=== PATIENT | female | born 1960 | race Caucasian/White ===

== ENCOUNTER 2021-09-05 00:38 | Day surgery (SDC) | payer OTHER, SELFPAY ==
[2021-08-21 15:23] VITALS: BMI 23.4
--- NOTE | 2021-09-04 13:55 | WPDANESEPPF ---
Anes - Initial Pre Proc Eval Procedure: Operation Date: 09/05/21 07:30 Proposed Procedures p Screening Colonoscopy - Shantanu Guy MD Date/Time: 09/04/21 13:55 Surgeon: Shantanu Guy MD Pre Op Diagnosis: neoplasm screening Patient Data Age: 61 Gender: F Height: 1.7 m Weight: 68 kg Allergies Allergy/AdvReac Type Severity Reaction Status Date / Time No Known Allergies Allergy Verified 09/05/21 06:31 Home Medications Medication Instructions Recorded Confirmed Type anastrozole 1 mg tablet 1 mg PO DAILY 10/31/19 09/05/21 History biotin 10,000 mcg capsule 10,000 mcg PO .QD cap 10/31/19 09/05/21 History zoledronic acid 5 mg/100 mL in 5 mg IVPB ONCE 04/16/20 09/05/21 History mannitol 5 %-water intravenous piggybck vitamin B complex 1 tablet PO DAILY 10/18/20 09/05/21 History atorvastatin 10 mg tablet 5 mg PO DAILY #90 tablet 04/15/21 09/05/21 Rx metoprolol succinate 50 mg 50 mg PO BID #180 tablet 07/10/21 09/05/21 Rx tablet,extended release 24 hr Elderberry 2 tbsp PO DAILY 08/21/21 09/05/21 History calcium 600 mg PO 3XW 08/21/21 09/05/21 History cholecalciferol (vitamin D3) 50 mcg PO DAILY 08/21/21 09/05/21 History [Vitamin D3] ergocalciferol (vitamin D2) 1,250 mcg PO WEEKLY 08/21/21 09/05/21 History lisinopril 20 mg PO DAILY 08/21/21 09/05/21 History omega-3 fatty acids-fish oil 1 cap PO 3XW 08/21/21 09/05/21 History [[place] 3 Fish Oil] zinc gluconate 50 mg PO DAILY 08/21/21 09/05/21 History Patient hx anesthesia problems: none Family hx anesthesia problems: none Results Review: All pre-operative results and documents have been reviewed as part of the pre-operative evaluation. [facility] Past Medical History Medical History (Updated 09/04/21 @ 13:56 by Glenn Reed DO) Ductal carcinoma in situ (DCIS) of breast (~2013) Essential (primary) hypertension History of blood transfusion (~1999) Hyperlipidemia PONV (postoperative nausea and vomiting) Surgical History Surgical History H/O breast reconstruction (~2013) H/O laparoscopy (~1976) H/O mastectomy (~1999) bilateral H/O: hysterectomy (~2000) Total Family History Family History Mother Diabetes mellitus Hypertension Family history of malignant neoplasm of breast in first degree relative Father Family history of lung cancer Grandparent Diabetes mellitus Hypertension Family history of Parkinson's disease Family history of emphysema Sibling Family history of mental disorder Hypertension Family history of alcoholism Family history of chronic obstructive pulmonary disease Family history of malignant neoplasm of breast in first degree relative Social History Social History Smoking status: Never smoker Alcohol intake: current Drinks per week: 2 Alcohol use details: WINE/BEER Substance use: never Substance use type: does not use Living arrangements: with family Spiritual care concerns: No Anes - Eval Final PreProcedure Day of Procedure 09/04/21 13:55 Patient weight: normal Heart: regular rate and rhythm Lungs: clear to auscultation and normal air movement Airway: Mallampati scale class II Neurological: alert and oriented Last oral intake: >/= 8 hours ASA classification: II Emergent: no Anesthetic plan: proceed Anesthesia type and monitoring: general GIVS and standard monitoring Results Review: All pre-operative results and documents have been reviewed as part of the pre-operative evaluation. Informed Consent: The patient's anesthetic plan and its attendant risks and benefits were discussed with the patient/family/POA. Questions were solicited and answers provided to the satisfaction of the patient/family/POA.
[2021-09-05 06:32] VITALS: BP 150/92; PULSE 88; RESP 16; TEMP 35.9; O2SAT 98
[2021-09-05] MEDS: LACTATED RINGERS 1,000 ML 150 ML IV CONT (06:43)
--- NOTE | 2021-09-05 07:17 | WPDGICN ---
Assessment and Plan Assessment and plan (1) Encounter for screening colonoscopy: Code(s): Z12.11 - Encounter for screening for malignant neoplasm of colon Status: Acute Assessment and Plan: Patient presents for screening colonoscopy. Appears to be at average risk for colon polyps. GI Consult Note Consult date/time: 09/05/21 07:17 HPI: Melba Monzon is a 61 year old female Presents for screening colonoscopy. Patient's current weight appetite bowel movements are normal. She denies abdominal pain. She has had no bleeding. Family history is noncontributory. Review of Systems Review of Systems: All systems reviewed & are unremarkable except as noted in HPI and below PMFSH Past Medical History Medical History (Updated 09/05/21 @ 07:18 by Shantanu Guy MD) Ductal carcinoma in situ (DCIS) of breast (~2013) Essential (primary) hypertension History of blood transfusion (~1999) Hyperlipidemia PONV (postoperative nausea and vomiting) Surgical History Surgical History H/O breast reconstruction (~2013) H/O laparoscopy (~1976) H/O mastectomy (~1999) bilateral H/O: hysterectomy (~2000) Total Family History Family History Mother Diabetes mellitus Hypertension Family history of malignant neoplasm of breast in first degree relative Father Family history of lung cancer Grandparent Diabetes mellitus Hypertension Family history of Parkinson's disease Family history of emphysema Sibling Family history of mental disorder Hypertension Family history of alcoholism Family history of chronic obstructive pulmonary disease Family history of malignant neoplasm of breast in first degree relative Social History Social History Smoking status: Never smoker Alcohol intake: current Drinks per week: 2 Alcohol use details: WINE/BEER Substance use: never Substance use type: does not use Living arrangements: with family Spiritual care concerns: No Meds Home Medications and Allergies Home Medications Medication Instructions Recorded Confirmed Type anastrozole 1 mg tablet 1 mg PO DAILY 10/31/19 09/05/21 History biotin 10,000 mcg capsule 10,000 mcg PO .QD cap 10/31/19 09/05/21 History zoledronic acid 5 mg/100 mL in 5 mg IVPB ONCE 04/16/20 09/05/21 History mannitol 5 %-water intravenous piggybck vitamin B complex 1 tablet PO DAILY 10/18/20 09/05/21 History atorvastatin 10 mg tablet 5 mg PO DAILY #90 tablet 04/15/21 09/05/21 Rx metoprolol succinate 50 mg 50 mg PO BID #180 tablet 07/10/21 09/05/21 Rx tablet,extended release 24 hr Elderberry 2 tbsp PO DAILY 08/21/21 09/05/21 History calcium 600 mg PO 3XW 08/21/21 09/05/21 History cholecalciferol (vitamin D3) 50 mcg PO DAILY 08/21/21 09/05/21 History [Vitamin D3] ergocalciferol (vitamin D2) 1,250 mcg PO WEEKLY 08/21/21 09/05/21 History lisinopril 20 mg PO DAILY 08/21/21 09/05/21 History omega-3 fatty acids-fish oil 1 cap PO 3XW 08/21/21 09/05/21 History [[place] 3 Fish Oil] zinc gluconate 50 mg PO DAILY 08/21/21 09/05/21 History Allergies Allergy/AdvReac Type Severity Reaction Status Date / Time No Known Allergies Allergy Verified 09/05/21 06:31 Vital Signs Vital Signs - 24 hr 09/05/21 06:32 Temperature 96.6 F L Pulse Rate 88 Respiratory Rate 16 Blood Pressure 150/92 H Pulse Oximetry 98 Exam Narrative: Physical exam reveals patient be alert. Vital signs stable. HEENT exam is unremarkable. Patient is anicteric. Lungs are clear to auscultation and percussion. Heart is without murmur or extra sounds. Abdominal exam bowel sounds are present soft nontender with no organomegaly. Digital external rectal exam is normal.
[2021-09-05 07:49] VITALS: BP 99/57; PULSE 76; RESP 22; O2SAT 96
[2021-09-05 07:59] VITALS: BP 129/77; PULSE 76; RESP 20; O2SAT 98
--- NOTE | 2021-09-05 08:01 | SUR.PHASEII ---
RN updated Gayatri, patient's family member, on patient's status in recovery and when to come pick her up
[2021-09-05 08:09] VITALS: BP 139/90; PULSE 72; RESP 14; O2SAT 100
== END 2021-09-05 08:20 | disposition home or self-care (01) ==
PROVIDERS: PCP Family Medicine; Visit Provider Internal Medicine Gastroenterology
PROC: 0DJD8ZZ Inspection of Lower Intestinal Tract, Via Natural or Artificial Opening Endoscopic (ICD-10-PCS; CPT 45378; principal; 2021-09-05 07:30)
DX: Z12.11 Encounter for screening for malignant neoplasm of colon (principal); K64.8 Other hemorrhoids; Z85.3 Personal history of malignant neoplasm of breast; I10 Essential (primary) hypertension; E78.5 Hyperlipidemia, unspecified
CPT/HCPCS: 45378; J0330; J2405; J2704; J7120

== ENCOUNTER 2022-12-13 10:32 | Emergency (ER) | payer OTHER, SELFPAY ==
--- NOTE | ~2022-12-13 | CT_ITS ---
EXAMINATION: CT facial & cervical spine wo DATE: 12/13/2022 11:42 INDICATION: Fall. Swelling between eyebrows lesions. TECHNIQUE: Computed tomography (CT) of the facial bones and maxillofacial region was performed withou t intravenous contrast. Automated exposure control and iterative reconstruction technique were employ ed. Exam dose: 243.58 mGy-cm total exam DLP. COMPARISON: None. FINDINGS: Left frontal cephalohematoma with hematoma extending into the region of the nasion and medi al periorbital areas. The nasal bones and anterior maxillary spine are intact. The orbital rims and dick are intact. No or bital blowout fracture is evident. The frontozygomatic sutures are intact. No fracture of the zygomatic arches. The maxillary bones are intact. Normal alignment at the temporomandibular joints. No mandibular fracture is detected. The mastoid air cells are normally developed and aerated. The paranasal sinuses are normally aerated. C1 and C2 are normally aligned and the odontoid process is intact. No fracture or dislocation or lock ed facet. There is fusion at the apophyseal joints on the right at C5-6 and mild bilateral C5-6 uncovertebral j oint spurring. There is mild degenerative disc disease and minimal anterolisthesis at C5-6. There is degenerative change at the apophyseal joints throughout the cervical spine, particularly on the right and on the left at C7-T1. There is minimal anterolisthesis at C7-T1. IMPRESSION: Left frontal cephalohematoma, extending into the nasion and medial periorbital areas No facial fracture Mild cervical spondylosis; no cervical spine fracture or dislocation or locked facet Reviewed, dictated and finalized at [facility]. Reviewed, dictated and finalized at [facility].
--- NOTE | ~2022-12-13 | CT_ITS ---
EXAMINATION: CT brain wo con DATE: 12/13/2022 11:42 INDICATION: Fall. Head injury. TECHNIQUE: Computed tomography (CT) of the head was performed without intravenous contrast. The mA wa s adjusted according to patient size. Iterative reconstruction technique was employed. Exam dose: 60 5.33 mGy-cm total exam DLP. COMPARISON: None FINDINGS: Bilateral vertebral artery and prominent bilateral carotid siphon internal carotid artery c alcifications. No intracranial mass lesion or hemorrhage or cerebrovascular accident is detected. No midline shift o r mass effect. Normal ventricular size. No subdural or epidural hematoma. Left parasagittal frontal for hematoma, extending to the nasion and left periorbital area. No underly ing skull fracture or contrecoup intracranial injury is noted. The included nasal bones are intact. No fracture or bone destruction of the cranial vault. Included paranasal sinuses and the mastoid air cells are normally developed and aerated. IMPRESSION: Left frontal cephalohematoma, extending into the region of the nasion and left periorbit al area No skull fracture or acute intracranial finding. Cerebral atherosclerosis Reviewed, dictated and finalized at [facility]. Reviewed, dictated and finalized at [facility]. IMPRESSION: Left frontal cephalohematoma, extending into the region of the stiven ion and left periorbital area No skull fracture or acute intracranial finding. Cerebral atherosclerosis
[2022-12-13 10:32] VITALS: BP 170/90; PULSE 89; RESP 16; TEMP 36.2; O2SAT 99
--- NOTE | 2022-12-13 12:41 | ED.GENADULT ---
HPI - General Adult General Chief complaint: Head Injury <Dimitri Palm PA-C - Last Filed: 12/13/22 19:30> Stated complaint: fall/facial injury <Dimitri Palm PA-C - Last Filed: 12/13/22 19:30> Time Seen by Provider: 12/13/22 10:55 <Dimitri Palm PA-C - Last Filed: 12/13/22 19:30> History of Present Illness HPI narrative: This is a 62-year-old female presents to the ED with chief complaint of a fall and facial injury. Fall was mechanical, witnessed. States she was walking outside and tripped over a board on her deck and subsequently fell onto her face. No LOC and no blood thinners. States she has a little bit of facial pain and swelling. No headache. Denies neck pain. <Dimitri Palm PA-C - Last Filed: 12/13/22 19:30> Related Data Home medications: Home Medications Medication Instructions Recorded Confirmed anastrozole 1 mg tablet 1 mg PO DAILY 10/31/19 06/30/22 biotin 10,000 mcg capsule 10,000 mcg PO .QD 10/31/19 06/30/22 zoledronic acid 5 mg/100 mL in 5 mg IV ONCE 04/16/20 06/30/22 mannitol 5 %-water intravenous piggybck (Reclast) vitamin B complex (B 1 tablet PO DAILY 10/18/20 06/30/22 Complex-Vitamin B12 tablet) Elderberry 2 tbsp PO DAILY 08/21/21 06/30/22 calcium 600 mg capsule 600 mg PO 3XW 08/21/21 06/30/22 cholecalciferol (vitamin D3) 50 50 mcg PO DAILY 08/21/21 06/30/22 mcg (2,000 unit) tablet (Vitamin D3) ergocalciferol (vitamin D2) 1,250 1,250 mcg PO WEEKLY 08/21/21 06/30/22 mcg (50,000 unit) capsule omega-3 fatty acids-fish oil 684 1 cap PO 3XW 08/21/21 06/30/22 mg-1,200 mg capsule,delayed release <ANDERS Leon Last Filed: 12/13/22 19:30> Allergies/adverse reactions: Allergies Allergy/AdvReac Type Severity Reaction Status Date / Time No Known Allergies Allergy Verified 06/30/22 15:57 <Dimitri Palm PA-C - Last Filed: 12/13/22 19:30> Review of Systems Review of Systems: CONSTITUTIONAL: Denies fever, chills, or sweats. EYES: Denies visual changes, redness, or discharge. SKIN: Reports swelling to the face. Denies rash or itching. MUSCULOSKELETAL: Endorses some facial pain. Denies back pain, joint pain, or myalgia. NEUROLOGIC: Denies headache, numbness, dizziness, or weakness. Denies LOC. PSYCHIATRIC: Denies anxiety or depression. <Dimitri Palm PA-C - Last Filed: 12/13/22 19:30> [facility] Past Medical History Medical History: Medical History Ductal carcinoma in situ (DCIS) of breast (~2013) Essential (primary) hypertension History of blood transfusion (~1999) Hyperlipidemia PONV (postoperative nausea and vomiting) <ANDERS Leon Last Filed: 12/13/22 19:30> Surgical History Surgical History: Surgical History H/O breast reconstruction (~2013) H/O laparoscopy (~1976) H/O mastectomy (~1999) bilateral H/O: hysterectomy (~2000) Total <Dimitri Palm PA-C - Last Filed: 12/13/22 19:30> Family History Family History: Family History (Updated 06/30/22 @ 16:00 by Fernanda Howell) Mother Diabetes mellitus Hypertension Family history of malignant neoplasm of breast in first degree relative Father Family history of lung cancer Grandparent Diabetes mellitus Hypertension Family history of Parkinson's disease Family history of emphysema Sibling , Brother passed June 14 2022 Family history of mental disorder Hypertension Family history of alcoholism Family history of chronic obstructive pulmonary disease Family history of malignant neoplasm of breast in first degree relative Lung cancer metastatic to brain <ANDERS Leon Last Filed: 12/13/22 19:30> Social History Social History: Social History (Updated 06/30/22 @ 16:01 by Fernanda Howell) Social History: Caffeine-coffee daily Smoking status: Never smoker Alcohol intake: current Drinks per week
[2022-12-13 13:14] VITALS: BP 124/86; PULSE 84; RESP 16; O2SAT 98
== END 2022-12-13 13:15 | disposition home or self-care (01) ==
PROVIDERS: Emergency Provider Physician Assistant; PCP Family Medicine
DX: S00.83XA Contusion of other part of head, initial encounter (principal); W01.0XXA Fall on same level from slipping, tripping and stumbling without subsequent striking against object, initial encounter; I10 Essential (primary) hypertension; E78.5 Hyperlipidemia, unspecified; Z79.811 Long term (current) use of aromatase inhibitors; Z85.3 Personal history of malignant neoplasm of breast
CPT/HCPCS: 70450; 70486; 72125; 99284

== ENCOUNTER → 2023-01-23 13:16 | Outpatient (CLI) | payer OTHER, SELFPAY ==
--- NOTE | ~2023-01-23 | XR_ITS ---
EXAMINATION: XR finger 1st RT min 2V DATE: 01/23/2023 13:26 INDICATION: Right thumb erythema. TECHNIQUE: 3 views of right thumb were obtained. COMPARISON: None. FINDINGS: Bone alignment is normal. No fracture. There is mild osteoarthritis of first carpometacarpa l joint and first interphalangeal joint. IMPRESSION: 1. Mild polyarticular osteoarthritis. Reviewed, dictated and finalized at [facility].
== END ==
PROVIDERS: PCP Family Medicine; Visit Provider Nurse Practitioner Family
DX: M19.041 Primary osteoarthritis, right hand (principal)
CPT/HCPCS: 73140

== ENCOUNTER → 2023-03-30 15:59 | Outpatient (CLI) | payer OTHER, SELFPAY ==
--- NOTE | ~2023-03-30 | XR_ITS ---
XR finger 4th LT min 2V DATE: 03/30/2023 16:09 INDICATION: Hyperextension injury and pain of fourth digit TECHNIQUE: 4 views COMPARISON: None FINDINGS: No fracture or dislocation, periosteal reaction or bone destruction of the fourth digit. Of osteophytic changes noted at the first carpometacarpal joint. IMPRESSION: Negative fourth digit Osteophyte is at first carpal metacarpal joint Reviewed, dictated and finalized at [facility].
== END ==
PROVIDERS: PCP Physician Assistant; Visit Provider Physician Assistant
DX: M20.012 Mallet finger of left finger(s) (principal); M25.742 Osteophyte, left hand
CPT/HCPCS: 73140